=== PATIENT | male | born 1965 | race Caucasian/White ===

== ENCOUNTER 2017-04-11 03:10 | Emergency (ER) | payer OTHER, MEDICAID ==
[2017-04-11 13:41] LABS: ADD MAN DIFF? NO
[2017-04-11 13:44] LABS: BASOPHILS % 0.6 % (0.0-2.0); EOSINOPHILS # 0.1 10^3/ul (0.0-0.5); EOSINOPHILS % 2.5 % (0.0-7.0); HEMATOCRIT 37.1 % (42.0-52.0); HEMOGLOBIN 12.5 g/dl (14.0-18.0); LYMPHOCYTES # 1.2 10^3/ul (0.8-2.9); LYMPHOCYTES % 22.2 % (15.0-51.0); MEAN CORPUSCULAR HEMOGLOBIN 29.3 pg (29.0-33.0); MEAN CORPUSCULAR HGB CONC 33.7 g/dl (32.0-37.0); MEAN CORPUSCULAR VOLUME 86.9 fl (82.0-101.0); MEAN PLATELET VOLUME 9.4 fl (7.4-10.4); MONOCYTE # 0.3 10^3/ul (0.3-0.9); MONOCYTES % 5.5 % (0.0-11.0); NEUTROPHIL # 3.6 10^3/ul (1.6-7.5); NEUTROPHILS % 68.6 % (39.0-77.0); PLATELET COUNT 251 10^3/UL (140-415); RED BLOOD COUNT 4.27 10^6/ul (4.70-6.10); RED CELL DISTRIBUTION WIDTH 14.2 % (11.5-14.5)
[2017-04-11 13:44] LABS: WHITE BLOOD COUNT 5.3 10^3/ul (4.8-10.8)
[2017-04-11 14:03] LABS: INR 0.94; PROTIME 12.7 Sec (11.9-14.9)
[2017-04-11 14:08] LABS: ALANINE AMINOTRANSFERASE 18 IU/L (13-69); ALBUMIN 4.7 g/dl (3.3-4.9); ALKALINE PHOSPHATASE 124 IU/L (42-121); ANION GAP 28 (8-16); ASPARTATE AMINO TRANSFERASE 69 IU/L (15-46); BLOOD UREA NITROGEN 43 mg/dl (7-20); CALCIUM 8.2 mg/dl (8.4-10.2); CARBON DIOXIDE 26 mmol/L (21-31); CHLORIDE 91 mmol/L (97-110); CREATININE 11.61 mg/dl (0.61-1.24); GLUCOSE 157 mg/dl (70-220); POTASSIUM 5.3 mmol/L (3.5-5.1); SODIUM 140 mmol/L (135-144); TOTAL PROTEIN 8.6 g/dl (6.1-8.1)
[2017-04-11 14:17] LABS: B-TYPE NATRIURETIC PEPTIDE 24300 PG/ML (0-125)
[2017-04-11 14:32] LABS: TROPONIN-I < 0.012 ng/ml (0.00-0.12)
== END 2017-04-11 16:10 | disposition home or self-care (01) ==
LOC: E/R 03:10
DX: R06.02 Shortness of breath (principal); I15.1 Hypertension secondary to other renal disorders; N18.6 End stage renal disease; E11.22 Type 2 diabetes mellitus with diabetic chronic kidney disease; Z79.4 Long term (current) use of insulin; Z99.2 Dependence on renal dialysis
CPT/HCPCS: 36415; 71045; 80053; 83880; 84484; 85025; 85610; 93005; 99285-25

== ENCOUNTER 2017-08-22 23:33 | Inpatient (IN) | payer OTHER ==
[2017-08-23] MEDS: NITROGLYCERIN 50 MG/D5W (PMX) 250 ML IV (00:39)
[2017-08-23 01:14] LABS: ADD MAN DIFF? NO
[2017-08-23 01:22] LABS: BASOPHILS % 0.6 % (0.0-2.0); EOSINOPHILS # 0.2 10^3/ul (0.0-0.5); EOSINOPHILS % 3.9 % (0.0-7.0); HEMATOCRIT 36.5 % (42.0-52.0); HEMOGLOBIN 12.1 g/dl (14.0-18.0); LYMPHOCYTES # 1.4 10^3/ul (0.8-2.9); LYMPHOCYTES % 22.6 % (15.0-51.0); MEAN CORPUSCULAR HEMOGLOBIN 29.4 pg (29.0-33.0); MEAN CORPUSCULAR HGB CONC 33.2 g/dl (32.0-37.0); MEAN CORPUSCULAR VOLUME 88.6 fl (82.0-101.0); MEAN PLATELET VOLUME 9.8 fl (7.4-10.4); MONOCYTE # 0.6 10^3/ul (0.3-0.9); MONOCYTES % 9.8 % (0.0-11.0); NEUTROPHIL # 3.9 10^3/ul (1.6-7.5); NEUTROPHILS % 62.6 % (39.0-77.0); PLATELET COUNT 187 10^3/UL (140-415); RED BLOOD COUNT 4.12 10^6/ul (4.70-6.10); RED CELL DISTRIBUTION WIDTH 13.8 % (11.5-14.5)
[2017-08-23 01:22] LABS: WHITE BLOOD COUNT 6.2 10^3/ul (4.8-10.8)
[2017-08-23 01:42] LABS: ALANINE AMINOTRANSFERASE 17 IU/L (13-69); ALBUMIN 4.1 g/dl (3.3-4.9); ALBUMIN/GLOBULIN RATIO 1.13; ALKALINE PHOSPHATASE 127 IU/L (42-121); ANION GAP 21 (8-16); ASPARTATE AMINO TRANSFERASE 14 IU/L (15-46); BLOOD UREA NITROGEN 65 mg/dl (7-20); CALCIUM 8.9 mg/dl (8.4-10.2); CARBON DIOXIDE 29 mmol/L (21-31); CHLORIDE 92 mmol/L (97-110); CREATININE 13.09 mg/dl (0.61-1.24); GLUCOSE 286 mg/dl (70-220); POTASSIUM 4.5 mmol/L (3.5-5.1); SODIUM 137 mmol/L (135-144); TOTAL PROTEIN 7.7 g/dl (6.1-8.1)
[2017-08-23 02:01] LABS: TROPONIN-I < 0.012 ng/ml (0.000-0.120)
[2017-08-23] MEDS ORDERED: NITROGLYCERIN (SL) 0.4 MG TAB SL (02:30)
[2017-08-23] MEDS ORDERED: morphine 2 MG INJ IV (02:30)
[2017-08-23] MEDS ORDERED: ONDANSETRON 4 MG INJ IV (02:30)
[2017-08-23] MEDS ORDERED: traMADol 50 MG TAB PO (02:30)
[2017-08-23] MEDS ORDERED: ACETAMINOPHEN 325 MG TAB PO (02:30)
[2017-08-23] MEDS ORDERED: NACL 0.9% 3 ML SYG IV (02:30)
[2017-08-23] MEDS: ASPIRIN 81 MG TAB PO ×2 (02:33→08:28)
[2017-08-23] MEDS: NITROGLYCERIN 2% 1 GM OINT PKT TD (02:34)
[2017-08-23] MEDS ORDERED: DEXTROSE 50% 50 ML SYRINGE IV ×2 (03:00)
[2017-08-23] MEDS ORDERED: GLUCOSE GEL 15 GRAM TUBE BUCCAL (03:00)
[2017-08-23] MEDS ORDERED: GLUCAGON 1 MG INJ IM (03:00)
[2017-08-23] MEDS ORDERED: GLUCOSE GEL 15 GRAM TUBE PO ×2 (03:00)
[2017-08-23 06:21] LABS: ADD MAN DIFF? NO
[2017-08-23 06:24] LABS: BASOPHIL # 0.1 10^3/ul (0.0-0.1); BASOPHILS % 1.1 % (0.0-2.0); EOSINOPHILS # 0.3 10^3/ul (0.0-0.5); EOSINOPHILS % 3.8 % (0.0-7.0); HEMATOCRIT 34.6 % (42.0-52.0); HEMOGLOBIN 11.7 g/dl (14.0-18.0); LYMPHOCYTES # 1.5 10^3/ul (0.8-2.9); LYMPHOCYTES % 21.4 % (15.0-51.0); MEAN CORPUSCULAR HEMOGLOBIN 29.8 pg (29.0-33.0); MEAN CORPUSCULAR HGB CONC 33.8 g/dl (32.0-37.0); MEAN PLATELET VOLUME 9.2 fl (7.4-10.4); MONOCYTE # 0.7 10^3/ul (0.3-0.9); MONOCYTES % 10.1 % (0.0-11.0); NEUTROPHIL # 4.5 10^3/ul (1.6-7.5); NEUTROPHILS % 63.3 % (39.0-77.0); PLATELET COUNT 187 10^3/UL (140-415); RED BLOOD COUNT 3.93 10^6/ul (4.70-6.10); RED CELL DISTRIBUTION WIDTH 13.8 % (11.5-14.5)
[2017-08-23 06:24] LABS: WHITE BLOOD COUNT 7.1 10^3/ul (4.8-10.8)
[2017-08-23 06:59] LABS: CREATINE KINASE 135 IU/L (23-200)
[2017-08-23 07:06] LABS: ALANINE AMINOTRANSFERASE 20 IU/L (13-69); ALBUMIN 3.8 g/dl (3.3-4.9); ALBUMIN/GLOBULIN RATIO 1.22; ALKALINE PHOSPHATASE 128 IU/L (42-121); ANION GAP 22 (8-16); ASPARTATE AMINO TRANSFERASE 12 IU/L (15-46); BILIRUBIN,INDIRECT 0.1 mg/dl (0-1.1); BILIRUBIN,TOTAL 0.1 mg/dl (0.2-1.3); BLOOD UREA NITROGEN 69 mg/dl (7-20); CALCIUM 8.5 mg/dl (8.4-10.2); CARBON DIOXIDE 26 mmol/L (21-31); CHLORIDE 95 mmol/L (97-110); CHOL/HDL RATIO 6.8 RATIO; CHOLESTEROL 218 mg/dl (100-200); GLUCOSE 224 mg/dl (70-220); HDL CHOLESTEROL 32 mg/dl (28-71); LDL CHOLESTEROL,CALCULATED 109 mg/dl; MAGNESIUM 2.4 mg/dl (1.7-2.5); PHOSPHORUS 8.5 mg/dl (2.5-4.9); SODIUM 138 mmol/L (135-144); TOTAL PROTEIN 6.9 g/dl (6.1-8.1); TRIGLYCERIDES 383 mg/dl (0-149)
[2017-08-23 07:08] LABS: CK INDEX 1.2
[2017-08-23 07:09] LABS: CK-MB 1.59 ng/ml (0.0-2.4); TROPONIN-I < 0.012 ng/ml (0.000-0.120)
[2017-08-23 07:10] LABS: POTASSIUM 5.2 mmol/L (3.5-5.1)
[2017-08-23 07:12] LABS: CREATININE 12.79 mg/dl (0.61-1.24)
[2017-08-23] MEDS ORDERED: CALCIUM ACETATE 667 MG CAP PO ×2 (08:00)
[2017-08-23] MEDS: CALCIUM ACETATE 667 MG CAP PO ×3 (08:24→17:44)
[2017-08-23] MEDS: SEVELAMER 800 MG TAB PO ×3 (08:24→17:44)
[2017-08-23] MEDS: GABAPENTIN 100 MG CAP PO ×2 (08:28→21:24)
[2017-08-23] MEDS: METOPROLOL (XL) 25 MG TAB PO (08:29)
[2017-08-23] MEDS: NIFEdipine (XL) 30 MG TAB PO (08:29)
[2017-08-23] MEDS: LISINOPRIL 20 MG TAB PO (08:29)
[2017-08-23] MEDS: INSULIN ASPART [NOVOLOG] 3 ML PEN SC ×7 (08:42→21:31)
[2017-08-23 12:43] LABS: HEPATITIS B SURFACE ANTIGEN NEGATIVE (NEGATIVE)
[2017-08-23 12:52] LABS: CREATINE KINASE 128 IU/L (23-200)
[2017-08-23 13:03] LABS: CK INDEX 1.2
[2017-08-23 13:07] LABS: CK-MB 1.48 ng/ml (0.0-2.4); TROPONIN-I < 0.012 ng/ml (0.000-0.120)
[2017-08-23] MEDS ORDERED: morphine LIQ (10 MG/5 ML) CUP PO (14:00)
[2017-08-23] MEDS: INSULIN GLARGINE [LANtus] 3 ML PEN SC (21:32)
[2017-08-24] MEDS: ACCU-CHEK XX (02:16)
[2017-08-24 07:07] LABS: ADD MAN DIFF? NO
[2017-08-24 07:19] LABS: BASOPHIL # 0.1 10^3/ul (0.0-0.1); BASOPHILS % 0.9 % (0.0-2.0); EOSINOPHILS # 0.3 10^3/ul (0.0-0.5); EOSINOPHILS % 3.7 % (0.0-7.0); HEMOGLOBIN 12.9 g/dl (14.0-18.0); LYMPHOCYTES # 1.4 10^3/ul (0.8-2.9); LYMPHOCYTES % 20.5 % (15.0-51.0); MEAN CORPUSCULAR HEMOGLOBIN 29.6 pg (29.0-33.0); MEAN CORPUSCULAR HGB CONC 33.9 g/dl (32.0-37.0); MEAN CORPUSCULAR VOLUME 87.2 fl (82.0-101.0); MEAN PLATELET VOLUME 9.6 fl (7.4-10.4); MONOCYTE # 0.6 10^3/ul (0.3-0.9); MONOCYTES % 8.1 % (0.0-11.0); NEUTROPHIL # 4.7 10^3/ul (1.6-7.5); NEUTROPHILS % 66.4 % (39.0-77.0); PLATELET COUNT 192 10^3/UL (140-415); RED BLOOD COUNT 4.36 10^6/ul (4.70-6.10)
[2017-08-24 07:33] LABS: MAGNESIUM 2.1 mg/dl (1.7-2.5)
[2017-08-24 07:33] LABS: PHOSPHORUS 8.5 mg/dl (2.5-4.9)
[2017-08-24 07:41] LABS: ALANINE AMINOTRANSFERASE 15 IU/L (13-69); ALBUMIN 4.1 g/dl (3.3-4.9); ALBUMIN/GLOBULIN RATIO 1.13; ALKALINE PHOSPHATASE 97 IU/L (42-121); ANION GAP 22 (8-16); ASPARTATE AMINO TRANSFERASE 14 IU/L (15-46); BILIRUBIN,INDIRECT 0.2 mg/dl (0-1.1); BILIRUBIN,TOTAL 0.2 mg/dl (0.2-1.3); BLOOD UREA NITROGEN 54 mg/dl (7-20); CALCIUM 8.8 mg/dl (8.4-10.2); CARBON DIOXIDE 26 mmol/L (21-31); CHLORIDE 94 mmol/L (97-110); CREATININE 11.75 mg/dl (0.61-1.24); GLUCOSE 170 mg/dl (70-220); POTASSIUM 5.4 mmol/L (3.5-5.1); SODIUM 137 mmol/L (135-144); TOTAL PROTEIN 7.7 g/dl (6.1-8.1)
[2017-08-24] MEDS: GABAPENTIN 100 MG CAP PO (08:38)
[2017-08-24] MEDS: SEVELAMER 800 MG TAB PO ×3 (08:38→17:09)
[2017-08-24] MEDS: CALCIUM ACETATE 667 MG CAP PO ×3 (08:38→17:09)
[2017-08-24] MEDS: LISINOPRIL 20 MG TAB PO (08:39)
[2017-08-24] MEDS: ASPIRIN 81 MG TAB PO (08:39)
[2017-08-24] MEDS: NIFEdipine (XL) 30 MG TAB PO (08:40)
[2017-08-24] MEDS: INSULIN ASPART [NOVOLOG] 3 ML PEN SC ×6 (08:40→17:12)
== END 2017-08-24 20:15 | disposition home or self-care (01) | DRG 304 ==
LOC: E/R 23:33 → TEL 08-23 02:18
PROC: 5A1D70Z Performance of Urinary Filtration, Intermittent, Less than 6 Hours Per Day (ICD-10-PCS; 2017-08-23)
PROC: 5A1D70Z Performance of Urinary Filtration, Intermittent, Less than 6 Hours Per Day (ICD-10-PCS; principal; 2017-08-24)
DX: I16.0 Hypertensive urgency (principal); N18.6 End stage renal disease; I12.0 Hypertensive chronic kidney disease with stage 5 chronic kidney disease or end stage renal disease; E11.22 Type 2 diabetes mellitus with diabetic chronic kidney disease; D63.1 Anemia in chronic kidney disease; R07.89 Other chest pain; Z99.2 Dependence on renal dialysis; Z79.4 Long term (current) use of insulin; Z79.82 Long term (current) use of aspirin
CPT/HCPCS: 36415; 71045; 80053; 80061; 82550; 82553; 82962; 83036; 83735; 84100; 84443; 84484; 85025; 87340; 90935; 93005; 93306; 96365; 96372; 99285-25

== ENCOUNTER 2017-11-06 21:53 | Observation (INO) | payer OTHER ==
[2017-11-06] MEDS: NITROGLYCERIN 2% 1 GM OINT PKT TD (22:10)
[2017-11-06 22:28] LABS: ADD MAN DIFF? NO
[2017-11-06 22:29] LABS: WHITE BLOOD COUNT 8.5 10^3/ul (4.8-10.8)
[2017-11-06 22:29] LABS: BASOPHIL # 0.1 10^3/ul (0.0-0.1); BASOPHILS % 0.8 % (0.0-2.0); EOSINOPHILS # 0.2 10^3/ul (0.0-0.5); EOSINOPHILS % 2.2 % (0.0-7.0); HEMATOCRIT 36.4 % (42.0-52.0); HEMOGLOBIN 12.5 g/dl (14.0-18.0); LYMPHOCYTES # 1.5 10^3/ul (0.8-2.9); LYMPHOCYTES % 17.7 % (15.0-51.0); MEAN CORPUSCULAR HEMOGLOBIN 30.3 pg (29.0-33.0); MEAN CORPUSCULAR HGB CONC 34.3 g/dl (32.0-37.0); MEAN CORPUSCULAR VOLUME 88.1 fl (82.0-101.0); MEAN PLATELET VOLUME 9.8 fl (7.4-10.4); MONOCYTE # 0.6 10^3/ul (0.3-0.9); MONOCYTES % 6.9 % (0.0-11.0); NEUTROPHIL # 6.1 10^3/ul (1.6-7.5); NEUTROPHILS % 71.9 % (39.0-77.0); PLATELET COUNT 192 10^3/UL (140-415); RED BLOOD COUNT 4.13 10^6/ul (4.70-6.10); RED CELL DISTRIBUTION WIDTH 13.9 % (11.5-14.5)
[2017-11-06 22:49] LABS: ANION GAP 21 (8-16); BLOOD UREA NITROGEN 40 mg/dl (7-20); CALCIUM 8.9 mg/dl (8.4-10.2); CARBON DIOXIDE 25 mmol/L (21-31); CHLORIDE 90 mmol/L (97-110); CREATININE 9.67 mg/dl (0.61-1.24); GLUCOSE 279 mg/dl (70-220); POTASSIUM 3.8 mmol/L (3.5-5.1); SODIUM 132 mmol/L (135-144)
[2017-11-06 23:01] LABS: TROPONIN-I < 0.010 ng/ml (0.000-0.120)
[2017-11-06] MEDS: ASPIRIN 325 MG TAB PO (23:17)
[2017-11-07] MEDS ORDERED: ONDANSETRON 4 MG INJ IV ×2 (04:30)
[2017-11-07] MEDS ORDERED: ACETAMINOPHEN 325 MG TAB PO ×2 (04:30)
[2017-11-07] MEDS ORDERED: GLUCOSE GEL 15 GRAM TUBE BUCCAL (05:00)
[2017-11-07] MEDS ORDERED: DEXTROSE 50% 50 ML SYRINGE IV ×2 (05:00)
[2017-11-07] MEDS ORDERED: GLUCAGON 1 MG INJ IM (05:00)
[2017-11-07] MEDS ORDERED: GLUCOSE GEL 15 GRAM TUBE PO ×2 (05:00)
[2017-11-07 05:42] LABS: ADD MAN DIFF? NO
[2017-11-07 06:15] LABS: BASOPHIL # 0.1 10^3/ul (0.0-0.1); BASOPHILS % 0.7 % (0.0-2.0); EOSINOPHILS # 0.2 10^3/ul (0.0-0.5); EOSINOPHILS % 3.2 % (0.0-7.0); HEMATOCRIT 36.3 % (42.0-52.0); HEMOGLOBIN 12.3 g/dl (14.0-18.0); LYMPHOCYTES # 1.7 10^3/ul (0.8-2.9); LYMPHOCYTES % 23.6 % (15.0-51.0); MEAN CORPUSCULAR HEMOGLOBIN 30.6 pg (29.0-33.0); MEAN CORPUSCULAR HGB CONC 33.9 g/dl (32.0-37.0); MEAN CORPUSCULAR VOLUME 90.3 fl (82.0-101.0); MEAN PLATELET VOLUME 9.8 fl (7.4-10.4); MONOCYTE # 0.6 10^3/ul (0.3-0.9); MONOCYTES % 7.8 % (0.0-11.0); NEUTROPHIL # 4.7 10^3/ul (1.6-7.5); NEUTROPHILS % 64.3 % (39.0-77.0); PLATELET COUNT 175 10^3/UL (140-415); RED BLOOD COUNT 4.02 10^6/ul (4.70-6.10); RED CELL DISTRIBUTION WIDTH 13.6 % (11.5-14.5)
[2017-11-07 06:15] LABS: WHITE BLOOD COUNT 7.3 10^3/ul (4.8-10.8)
[2017-11-07 06:26] LABS: ALANINE AMINOTRANSFERASE 22 IU/L (13-69); ALBUMIN 4.4 g/dl (3.3-4.9); ALBUMIN/GLOBULIN RATIO 1.18; ALKALINE PHOSPHATASE 131 IU/L (42-121); ANION GAP 22 (8-16); ASPARTATE AMINO TRANSFERASE 23 IU/L (15-46); BILIRUBIN,INDIRECT 0.3 mg/dl (0-1.1); BILIRUBIN,TOTAL 0.3 mg/dl (0.2-1.3); BLOOD UREA NITROGEN 45 mg/dl (7-20); CALCIUM 8.7 mg/dl (8.4-10.2); CARBON DIOXIDE 29 mmol/L (21-31); CHLORIDE 88 mmol/L (97-110); CHOL/HDL RATIO 10.3 RATIO; CHOLESTEROL 311 mg/dl (100-200); CREATININE 11.56 mg/dl (0.61-1.24); GLUCOSE 340 mg/dl (70-220); HDL CHOLESTEROL 30 mg/dl (28-71); SODIUM 135 mmol/L (135-144); TOTAL PROTEIN 8.1 g/dl (6.1-8.1)
[2017-11-07 06:32] LABS: CK-MB 1.69 ng/ml (0.0-2.4); TROPONIN-I 0.011 ng/ml (0.000-0.120)
[2017-11-07 06:33] LABS: CK INDEX 0.9; CREATINE KINASE 188 IU/L (23-200)
[2017-11-07 06:37] LABS: LDL CHOLESTEROL,CALCULATED 136 mg/dl; TRIGLYCERIDES 724 mg/dl (0-149)
[2017-11-07 06:53] LABS: THYROID STIMULATING HORMONE 0.904 MIU/L (0.465-4.680)
[2017-11-07] MEDS: INSULIN ASPART [NOVOLOG] 3 ML PEN SC ×6 (08:05→20:41)
[2017-11-07] MEDS: HEPARIN 5,000 UNIT/0.5 ML VIAL SC ×2 (08:48→20:56)
[2017-11-07] MEDS: INSULIN GLARGINE [LANTus] (100 UNITS/ML) SYG SC ×2 (09:52→20:55)
[2017-11-07 10:56] LABS: CREATINE KINASE 166 IU/L (23-200)
[2017-11-07 11:10] LABS: CK-MB 1.63 ng/ml (0.0-2.4); TROPONIN-I < 0.010 ng/ml (0.000-0.120)
[2017-11-07] MEDS: SEVELAMER CARBONATE 800 MG TABLET PO ×2 (11:16→17:22)
[2017-11-07] MEDS: CALCIUM ACETATE 667 MG CAP PO ×2 (11:16→17:22)
[2017-11-07] MEDS ORDERED: SEVELAMER 800 MG TAB PO (12:00)
[2017-11-07] MEDS ORDERED: NITROGLYCERIN (SL) 0.4 MG TAB SL (19:00)
[2017-11-07] MEDS: GABAPENTIN 100 MG CAP PO (20:41)
[2017-11-07 22:17] LABS: HEPATITIS B SURFACE ANTIBODY POSITIVE (NEGATIVE)
[2017-11-07 22:38] LABS: HEPATITIS B SURFACE ANTIGEN NEGATIVE (NEGATIVE)
[2017-11-08] MEDS ORDERED: ACCU-CHEK XX (02:00)
[2017-11-08] MEDS: ACCU-CHEK XX (02:41)
[2017-11-08 06:09] LABS: ADD MAN DIFF? NO
[2017-11-08 06:20] LABS: WHITE BLOOD COUNT 7.9 10^3/ul (4.8-10.8)
[2017-11-08 06:20] LABS: BASOPHIL # 0.1 10^3/ul (0.0-0.1); BASOPHILS % 0.6 % (0.0-2.0); EOSINOPHILS # 0.3 10^3/ul (0.0-0.5); EOSINOPHILS % 3.5 % (0.0-7.0); HEMATOCRIT 36.6 % (42.0-52.0); HEMOGLOBIN 12.2 g/dl (14.0-18.0); LYMPHOCYTES # 1.9 10^3/ul (0.8-2.9); LYMPHOCYTES % 24.5 % (15.0-51.0); MEAN CORPUSCULAR HEMOGLOBIN 29.5 pg (29.0-33.0); MEAN CORPUSCULAR HGB CONC 33.3 g/dl (32.0-37.0); MEAN CORPUSCULAR VOLUME 88.4 fl (82.0-101.0); MONOCYTE # 0.7 10^3/ul (0.3-0.9); MONOCYTES % 8.5 % (0.0-11.0); NEUTROPHILS % 62.6 % (39.0-77.0); PLATELET COUNT 190 10^3/UL (140-415); RED BLOOD COUNT 4.14 10^6/ul (4.70-6.10); RED CELL DISTRIBUTION WIDTH 13.8 % (11.5-14.5)
[2017-11-08 06:41] LABS: CREATINE KINASE 119 IU/L (23-200)
[2017-11-08 06:43] LABS: ANION GAP 25 (8-16); BLOOD UREA NITROGEN 65 mg/dl (7-20); CALCIUM 8.9 mg/dl (8.4-10.2); CARBON DIOXIDE 27 mmol/L (21-31); CHLORIDE 88 mmol/L (97-110); GLUCOSE 143 mg/dl (70-220); MAGNESIUM 2.3 mg/dl (1.7-2.5); POTASSIUM 4.7 mmol/L (3.5-5.1); SODIUM 135 mmol/L (135-144)
[2017-11-08 06:45] LABS: CK INDEX 1.2; CK-MB 1.39 ng/ml (0.0-2.4); TROPONIN-I 0.011 ng/ml (0.000-0.120)
[2017-11-08 06:51] LABS: CREATININE 14.08 mg/dl (0.61-1.24)
[2017-11-08] MEDS: CALCIUM ACETATE 667 MG CAP PO ×3 (07:31→17:31)
[2017-11-08] MEDS: SEVELAMER CARBONATE 800 MG TABLET PO ×3 (07:31→17:31)
[2017-11-08] MEDS: INSULIN ASPART [NOVOLOG] 3 ML PEN SC ×6 (07:39→17:33)
[2017-11-08] MEDS: HEPARIN 5,000 UNIT/0.5 ML VIAL SC (08:46)
[2017-11-08] MEDS: REGADENOSON 0.4 MG/5 ML SYG (10:29)
[2017-11-08] MEDS: GABAPENTIN 100 MG CAP PO (11:09)
== END 2017-11-08 18:41 | disposition home or self-care (01) ==
LOC: 6WM 11-08 12:05 → E/R 21:53 → 6WM 23:36
DX: R07.9 Chest pain, unspecified (principal); I12.0 Hypertensive chronic kidney disease with stage 5 chronic kidney disease or end stage renal disease; N18.6 End stage renal disease; E11.22 Type 2 diabetes mellitus with diabetic chronic kidney disease; D63.1 Anemia in chronic kidney disease; R06.02 Shortness of breath; Z79.4 Long term (current) use of insulin; Z99.2 Dependence on renal dialysis; Z87.891 Personal history of nicotine dependence
CPT/HCPCS: 36415; 71045; 78452; 80048; 80053; 80061; 82550; 82553; 82962; 83036; 83735; 84100; 84443; 84484; 85025; 86706; 87340; 90935; 93005; 93017; 99285-25; G0378

== ENCOUNTER 2018-01-02 00:31 | Emergency (ER) | payer OTHER ==
[2018-01-02 01:11] LABS: ADD MAN DIFF? NO
[2018-01-02 01:13] LABS: BASOPHIL # 0.1 10^3/ul (0.0-0.1); BASOPHILS % 0.7 % (0.0-2.0); EOSINOPHILS # 0.1 10^3/ul (0.0-0.5); EOSINOPHILS % 1.3 % (0.0-7.0); HEMATOCRIT 36.1 % (42.0-52.0); HEMOGLOBIN 12.3 g/dl (14.0-18.0); LYMPHOCYTES % 13.3 % (15.0-51.0); MEAN CORPUSCULAR HEMOGLOBIN 30.7 pg (29.0-33.0); MEAN CORPUSCULAR HGB CONC 34.1 g/dl (32.0-37.0); MEAN PLATELET VOLUME 9.2 fl (7.4-10.4); MONOCYTE # 0.4 10^3/ul (0.3-0.9); MONOCYTES % 5.2 % (0.0-11.0); NEUTROPHIL # 5.9 10^3/ul (1.6-7.5); NEUTROPHILS % 79.1 % (39.0-77.0); PLATELET COUNT 186 10^3/UL (140-415); RED BLOOD COUNT 4.01 10^6/ul (4.70-6.10); RED CELL DISTRIBUTION WIDTH 13.5 % (11.5-14.5)
[2018-01-02 01:13] LABS: WHITE BLOOD COUNT 7.5 10^3/ul (4.8-10.8)
[2018-01-02 01:43] LABS: ANION GAP 18 (8-16); BLOOD UREA NITROGEN 31 mg/dl (7-20); CALCIUM 8.6 mg/dl (8.4-10.2); CARBON DIOXIDE 34 mmol/L (21-31); CHLORIDE 86 mmol/L (97-110); CREATININE 9.22 mg/dl (0.61-1.24); GLUCOSE 293 mg/dl (70-220); POTASSIUM 4.7 mmol/L (3.5-5.1); SODIUM 133 mmol/L (135-144)
[2018-01-02 01:55] LABS: TROPONIN-I < 0.012 ng/ml (0.000-0.120)
== END 2018-01-02 02:49 | disposition home or self-care (01) ==
LOC: E/R 00:31
DX: E11.65 Type 2 diabetes mellitus with hyperglycemia (principal); I12.0 Hypertensive chronic kidney disease with stage 5 chronic kidney disease or end stage renal disease; N18.6 End stage renal disease; E11.22 Type 2 diabetes mellitus with diabetic chronic kidney disease; F17.210 Nicotine dependence, cigarettes, uncomplicated; Z79.4 Long term (current) use of insulin; Z99.2 Dependence on renal dialysis
CPT/HCPCS: 36415; 71045; 80048; 84484; 85025; 93005; 99285-25

== ENCOUNTER 2018-06-18 23:20 | Emergency (ER) | payer OTHER ==
[2018-06-19 01:30] LABS: ADD MAN DIFF? NO
[2018-06-19 01:31] LABS: BASOPHIL # 0.1 10^3/ul (0.0-0.1); BASOPHILS % 0.8 % (0.0-2.0); EOSINOPHILS # 0.1 10^3/ul (0.0-0.5); EOSINOPHILS % 1.5 % (0.0-7.0); HEMATOCRIT 38.5 % (42.0-52.0); HEMOGLOBIN 12.9 g/dl (14.0-18.0); LYMPHOCYTES # 1.3 10^3/ul (0.8-2.9); LYMPHOCYTES % 19.3 % (15.0-51.0); MEAN CORPUSCULAR HEMOGLOBIN 29.7 pg (29.0-33.0); MEAN CORPUSCULAR HGB CONC 33.5 g/dl (32.0-37.0); MEAN CORPUSCULAR VOLUME 88.7 fl (82.0-101.0); MEAN PLATELET VOLUME 9.7 fl (7.4-10.4); MONOCYTE # 0.5 10^3/ul (0.3-0.9); MONOCYTES % 8.2 % (0.0-11.0); NEUTROPHIL # 4.6 10^3/ul (1.6-7.5); NEUTROPHILS % 69.9 % (39.0-77.0); PLATELET COUNT 211 10^3/UL (140-415); RED BLOOD COUNT 4.34 10^6/ul (4.70-6.10); RED CELL DISTRIBUTION WIDTH 14.1 % (11.5-14.5)
[2018-06-19 01:31] LABS: WHITE BLOOD COUNT 6.6 10^3/ul (4.8-10.8)
[2018-06-19 01:47] LABS: ALANINE AMINOTRANSFERASE 18 IU/L (13-69); ALBUMIN 4.7 g/dl (3.3-4.9); ALBUMIN/GLOBULIN RATIO 1.06; ALKALINE PHOSPHATASE 135 IU/L (42-121); ANION GAP 18 (5-13); ASPARTATE AMINO TRANSFERASE 32 IU/L (15-46); BILIRUBIN,INDIRECT 0.1 mg/dl (0-1.1); BILIRUBIN,TOTAL 0.1 mg/dl (0.2-1.3); BLOOD UREA NITROGEN 29 mg/dl (7-20); CALCIUM 9.4 mg/dl (8.4-10.2); CARBON DIOXIDE 32 mmol/L (21-31); CHLORIDE 89 mmol/L (97-110); CREATININE 9.11 mg/dl (0.61-1.24); Estimated GFR 6 mL/min (>60); GLUCOSE 260 mg/dl (70-220); POTASSIUM 4.3 mmol/L (3.5-5.1); SODIUM 139 mmol/L (135-144); TOTAL PROTEIN 9.1 g/dl (6.1-8.1)
[2018-06-19 01:59] LABS: B-TYPE NATRIURETIC PEPTIDE 2500 PG/ML (0-125); TROPONIN-I < 0.012 ng/ml (0.000-0.120)
[2018-06-19] MEDS: LORAZEPAM 2 MG INJ IV (02:14)
== END 2018-06-19 03:42 | disposition home or self-care (01) ==
LOC: E/R 23:20
DX: R07.9 Chest pain, unspecified (principal); I12.0 Hypertensive chronic kidney disease with stage 5 chronic kidney disease or end stage renal disease; N18.6 End stage renal disease; E11.22 Type 2 diabetes mellitus with diabetic chronic kidney disease; Z87.891 Personal history of nicotine dependence; Z79.4 Long term (current) use of insulin
CPT/HCPCS: 36415; 71045; 80053; 83880; 84484; 85025; 93005; 96374; 99285-25